=== PATIENT | male | born 1950 | race Caucasian/White ===

== ENCOUNTER 2016-07-03 06:37 | Inpatient (IN) ==
--- NOTE | 2016-07-02 13:33 | Anesthesia Evaluation PreOp ---
Date of Encounter: 07/03/16 Time of Encounter: 07:59 - Past History Planned Operation: CABG Cardiac History: Angina, HTN, Pacemaker/ICD (3 vessel disease, EF60% recently hospitalized for angina), Other (CAD with 3) Pulmonary History: Former smoker (quit smoking cigars 5 years ago), COPD PHARMACY AIDE History: Denies Any Significant HX Other Medical History: Thyroid (hypothyroid), Other (BPH) Anesthesia History: No Prior Anesthetic Complications, Past Anesthesia (T&A remotely) Alcohol Use: occasionally, recent Drug use: none Medications and Allergies Albuterol Sulfate [Proair Hfa] 2 puff IH Q4H PRN 07/01/16 [History] Aspirin [Lo-Dose Aspirin EC] 81 mg PO DAILY 07/01/16 [History] Budesonide/Formoterol 160/4.5 [Symbicort 160/4.5] 2 puff IH BIDR 07/01/16 [ History] Docusate [Colace] 100 mg PO DAILY 07/01/16 [History] Isosorbide MONOnitrate [Isosorbide Mononitrate] 15 mg PO DAILY 07/01/16 [History ] Levothyroxine [Synthroid] 175 mcg PO 0630 07/01/16 [History] Metoprolol XL (24 HR) Succ [Toprol Xl] 25 mg PO DAILY 07/01/16 [History] Omeprazole 20 mg PO DAILY 07/01/16 [History] Ranitidine HCl [Zantac 75] 75 mg PO DAILY 07/01/16 [History] Tamsulosin [Flomax] 0.4 mg PO DAILY 07/01/16 [History] Tiotropium [Spiriva] 18 mcg IH 0700 07/01/16 [History] Allergies No Known Allergies Allergy (Verified 07/03/16 07:28) - Meds/Allergy Pre-op Review Medications Reviewed: Yes Allergies Reviewed: Yes Beta Blockers on Current Med List: Yes Anesthesia Results - Labs Laboratory Tests 06/26/16 06/26/16 17:09 17:09 Hgb 17.1 H Hct 50.7 H Plt Count 305 Sodium 139 Potassium 4.0 BUN 14 Creatinine 1.43 H - Imaging Additional studies: Cath shows 3 vessel disease with EF 60% Anesthesia Exam Selected Entries 07/03/16 06:57 Temperature 98.2 F Pulse Rate 79 Respiratory Rate 18 Blood Pressure 154/93 O2 Sat by Pulse Oximetry 95 Height: 70in Weight: 126kg NPO (# of Hours): 8 Pain Scale: 2 Pain Scale Used: Numeric (1 - 10) - HEENT Pupil (Motor): EOMI Mallampati: III Teeth: Missing, Poor dentition Oral Opening: Greater than 3 - PHARMACY AIDE LOC: Oriented PHARMACY AIDE Motor: Normal RUE, Normal LUE, Normal RLE, Normal LLE, Normal Face PHARMACY AIDE Sensory: Normal: RUE, LUE, RLE, LLE, Face - Cardiac Rhythm: Regular Murmur: None - Pulmonary Breath Sounds: bilateral Clear Respiratory Effort: Symmetrical Anesthesia Assess/Plan ASA Score: 3 Modified Duane Scale for Level of Consciousness: Cooperative, oriented, and tranquil Anesthetic Plan: General Monitoring Plan: Standard Monitors, A-Line, PAC, CARL Recovery Plan: ICU (Discussed risks of GA, lines, CARL and potential need for blood. Questions answered and agrees to proceed)
[2016-07-03] MEDS ORDERED: Albuterol 2.5 MG/3 ML NEBULIZER IH ONE (06:49)
[2016-07-03] MEDS ORDERED: ceFAZolin 1,000 MG in D5% in Water (Mini-Bag+) 100 ML IVPB ONE (06:50)
[2016-07-03] MEDS: Chlorhexidine Rinse 15 ML MOUTHWASH MM SCH ×3 (07:15→23:27)
--- NOTE | 2016-07-03 07:28 | History & Physical Report ---
Date of Encounter: 07/03/16 Time of Encounter: 07:27 24 Hour HP Update - Instructions Instructions: If the History and Physical is less than 30 days old and was completed prior to A.M. admission and or procedure and has NOT been updated on calendar day of procedure please complete this update prior to performing procedure. - Update Patient reports changes in Medical Condition: No Changes in examination, assessment, or condition: No Changes in Medication: No Preop tests/diagnostics Reviewed: Yes Pre-Op MRSA Screen: Negative Surgery Remains Indicated: Yes Consent for Planned Operative Procedure(s) Verified: Yes - Pre-Operative Checklist Preoperative Checklist Indicated: Yes Prophylactic Antibiotic Ordered: Yes Home Medications Include Beta Julian: Yes Beta Julian Taken Today (Day of Surgery): Yes Beta Julian Taken Yesterday (Day Prior to Surgery): Yes Is VTE Prophylaxis Indicated?: Yes
[2016-07-03] MEDS ORDERED: *HR* Phenylephrine 10 MG/ML VIAL ONE (07:34)
[2016-07-03] MEDS ORDERED: Famotidine 20 MG/2 ML VIAL ONE (07:34)
[2016-07-03] MEDS ORDERED: *HR* Norepinephrine 4 MG/4 ML VIAL IVC ONE (07:34)
[2016-07-03] MEDS ORDERED: *HR* Rocuronium Bromide 50 MG/5 ML VIAL ONE ×2 (07:34→11:13)
[2016-07-03] MEDS ORDERED: *HR* Etomidate 20 MG/10 ML AMPUL IVP ONE (07:34)
[2016-07-03] MEDS ORDERED: Protamine Sulfate 250 MG/25 ML VIAL IVP ONE (07:35)
[2016-07-03] MEDS ORDERED: Tranexamic Acid 1,000 MG/10 ML VIAL ONE ×2 (07:35→10:02)
[2016-07-03] MEDS ORDERED: *HR* Midazolam HCl 5 MG/5 ML VIAL IVP ONE (07:45)
[2016-07-03] MEDS ORDERED: *HR* FentaNYL (PF) 1,000 MCG/20 ML VIAL ONE (07:46)
[2016-07-03] MEDS ORDERED: Nitroglycerin 25 MG/250 ML INFUS..BTL IVC ONE ×2 (07:47→11:24)
[2016-07-03] MEDS ORDERED: NiCARdipine 2.5 MG/10 ML Syringe IVPB ONE (07:48)
[2016-07-03] MEDS ORDERED: Verapamil 5 MG/2 ML VIAL ONE (08:09)
[2016-07-03] MEDS ORDERED: *HR* Phenylephrine 10 MG/ML VIAL IVC ONE (08:29)
[2016-07-03] MEDS ORDERED: Albumin Human 25% 25 GM/100 ML IV.SOLN IV ONE (08:29)
[2016-07-03] MEDS ORDERED: *HR* Heparin 10,000 UNIT/10 ML VIAL IV ONE (08:29)
[2016-07-03] MEDS ORDERED: *HR* Magnesium Sulfate 2 GM/50 ML PIGGYBACK IVPB ONE (08:29)
[2016-07-03] MEDS ORDERED: Lidocaine 2% Syringe 100 MG/5 ML IV ONE (08:29)
[2016-07-03] MEDS ORDERED: Mannitol 25% vial 12.5 GM/50 ML VIAL IVP ONE (08:29)
[2016-07-03] MEDS ORDERED: *HR* Atropine Sulfate 0.4 MG/ML VIAL ONE (09:03)
--- NOTE | 2016-07-03 09:17 | Anesthesia Procedures ---
Date of Encounter: 07/03/16 Time of Encounter: 08:20 Procedures: Anesthesia - Arterial Line Consent obtained: written consent Time out performed: Yes Sedation: Versed (mg): 2 Sedation: Fentanyl (mcg): 100 Supplemental Oxygen via Nasal Cannula (L/min): 2 Local Anesthetic: Lidocaine 1% Amount of Anesthetic used (mls): 1 Size (Gauge): 20 Length (inches): 5 Technique Used: sterile prep, guide wire technique, direct puncture technique Post-Procedure: line taped into place, dry sterile dressing placed Patient tolerated procedure: well, no complications Complications: none Site: Radial L - Central Line Placement Right IJ Consent obtained: written consent Time out performed: Yes Patient placed on monitor/pulse ox: Yes MD prep: mask, gown, gloves Central line prep: Chlorhexidine scrub, sterile drapes applied Ultrasound used for placement: Yes Technique: Seldinger Lumen Inserted: Introducer Post procedure: sutured in place, good blood return, all ports aspirated, flushed, capped, sterile dressing applied Patient tolerated procedure: well, no complications Complications: none Comments: attempt x 1. Introducer placed easily. Tiger placed wedge at approx 60 cm. no arrythmias with placement.
[2016-07-03] MEDS ORDERED: Albumin Human 5% 50.0 GM/1,000 ML VIAL ONE (11:25)
[2016-07-03] MEDS ORDERED: Protamine Sulfate 50 MG/5 ML VIAL IVP ONE (11:32)
[2016-07-03] MEDS ORDERED: *HR* Promethazine 25 MG/ML VIAL IVP PRN (12:18)
[2016-07-03] MEDS ORDERED: *HR* Dextrose 50 % in Water (Syg) 50 ML SYRINGE IVP PRN (12:18)
[2016-07-03] MEDS ORDERED: Insulin Regular, Human 100 UNIT/ML IV PRN (12:18)
[2016-07-03] MEDS ORDERED: Potassium Chloride 40 MEQ/200 ML BAG IVPB PRN (12:18)
[2016-07-03] MEDS ORDERED: Ondansetron 4 MG/2 ML VIAL IVP PRN (12:18)
[2016-07-03] MEDS ORDERED: Naloxone 0.4 MG/ML INJ IVP PRN (12:18)
[2016-07-03 12:36] LABS: ABG Base Excess 1.9 mEq/L (-2.0 to 3.0); ABG HCO3 28.2 mEQ/L (21-27); ABG Oxygen Saturation 96 % (95-98); ABG PCO2 50 mmHg (35-45); ABG PO2 87 mmHg (85-104); ABG TCO2 29.7 mEq/L (20-26); Basophils % 0.3 %; Mean Platelet Volume 9.2 fL (9.4-12.4)
[2016-07-03 12:38] LABS: Blood Gas FiO2 50 %
[2016-07-03 12:39] LABS: ABG PH 7.36 pH Units (7.32-7.45); Basophils # 0.1 K/mcL (0.0-0.2); Eosinophils # 0.3 K/mcL (0.0-0.6); Eosinophils % 1.2 %; Hematocrit 41.3 % (37.5-50.1); Hemoglobin 14.1 g/dL (12.9-16.9); Lymphocytes # 3.5 K/mcL (0.6-4.6); Lymphocytes % 13.5 %; Mean Corpuscular HGB Conc 34.1 g/dL (31.6-35.5); Mean Corpuscular Hemoglobin 30.5 pg (28.0-33.3); Mean Corpuscular Volume 89.4 fL (83.0-100.0); Monocytes # 1.5 K/mcL (0.0-1.3); Monocytes % 5.6 %; Platelet Count 190 K/mcL (140-400); Red Blood Count 4.62 M/mcL (4.19-5.50); Red Cell Distribution Width 12.3 % (11.5-14.5); Segmented Neutrophils % 78.4 %
--- NOTE | 2016-07-03 12:40 | Operative Note ---
Date of procedure: 07/03/16 Procedure in Detail: Preoperative diagnosis. Coronary artery disease. Postoperative diagnosis. Same. Procedures. Coronary artery bypass grafting 3 with the [place] to the LAD and saphenous vein grafts to the obtuse marginal branch of the circumflex and right coronary artery with saphenous vein. Surgeon. Dr. Frantz Escalante. Asst. Raj Correia. Anesthesia. Dr. Lucian Grajeda. Patient is a 65-year-old gentleman with a diagnosis of COPD who presented with angina. Cardiac catheterization revealed left main disease with triple-vessel disease. He was brought to the operating room where he underwent a general anesthetic. He was prepped and draped in standard fashion. The right greater saphenous vein was harvested from the right ankle up to the right lower thigh. This was done through 2 small incisions using the scope. These incisions were subsequently closed using a deep layer of 2-0 Vicryl and a 3-0 Vicryl subcuticular stitch. Standard median sternotomy was performed. Pericardium was opened in the midline and suspended with 2-0 silk stay sutures. Double purse string of 20 S[place] was placed in the aorta for the aortic cannulation site. A pursestring of 20 Surgilon was placed in the right atrial appendage for the venous uptake. The patient was heparinized. The aorta was cannulated without difficulty. 2 stage venous uptake cannula was inserted through the right atrial appendage. The patient was placed on cardiopulmonary bypass and cooled to 35. A pursestring of 4-0 silk was placed in the aorta and the cardioplegia needle was inserted through here. This was also used as an active and passive aortic vent. The aorta was crossclamped and a liter of antegrade cardioplegia was given. Topical cooling with iced saline slush was also done. Attention was first turned to the right coronary artery. The posterior descending branches were too small for grafting. The distal right coronary artery was dissected free with the [place] blade and opened with a [place] blade and the Aguilar scissors. This had a lumen of 1-1/2 mm and was relatively free of disease. A standard end to side anastomosis was constructed using the saphenous vein and a 7-0 Prolene. When this was completed , the patient received an additional dose of antegrade cardioplegia. Attention was next turned to the obtuse marginal branch of the circumflex. This was found to be intramyocardial. It was dissected free with the [place] blade and opened with a [place] blade and the Aguilar scissors. It had a lumen of 1-1/2 mm and was relatively free of disease. A standard end-to-side anastomosis was constructed using the saphenous vein and a 7-0 Prolene. At this point, the patient received the last dose of antegrade cardioplegia. Mammary pedicle was harvested. Tonsil clamp was placed distally and was divided with the Metzenbaum scissors. Distal end was tied off with 2-0 silk suture. Proximal limb was trimmed and brought into the wound. The LAD was dissected free with the [place] blade was found to have diffuse disease out to its tip. It was opened with a [place] blade and the Aguilar scissors. It had a lumen of 1 and 1/2 mm with moderate diffuse disease. A standard end side anastomosis was constructed using the mammary artery and a 7- 0 Prolene. When this was completed, the bulldog clamp was removed and the hemostasis was good. The pedicle was tacked to the surface of the heart using 2 interrupted 5-0 silk sutures. Cross-clamp was removed and rewarming was begun. Total cross-clamp time was 45 minutes. A side-biting clamp was placed on the aorta and the cardioplegia needle was removed. 2 holes were made in the aorta using the [place] blade and the 4.5 mm aortic punch. 2 proximal anastomosis were constructed using the saphenous veins and 5-0 Prolene's. The circumflex anastomosis was superior and the right anastomosis was inferior. When this was completed, the side-biting clamp was removed. Grass were de-aired using #25- gauge needle. Distal anastomoses were inspected and found to be hemostatic. Proximal anastomoses were marked with the marker from [employer] sponge. A pair of ventricular pacing wires was left. A 32 right angle chest tube in the left pleural space. A 32 pericardial chest tube. A 42 mediastinal chest tube. The patient was weaned from bypass requiring no pressors for support. He was decannulated and protamine was given. Hemostasis was good and the hemodynamics were good. Pericardium was left open. Sternum was closed with #7 sternal wires in simple and [id number] fashion. Fascia was run with #1 Vicryl. Subcutaneous tissues with a 2-0 Vicryl. Skin was closed with a 3-0 Vicryl subcuticular stitch. The patient tolerated procedure well and was returned to intensive care unit in satisfactory and stable condition. Total bypass time was 82 minutes. Total cross-clamp time was 45 minutes. Human cooled to 35.
[2016-07-03 12:42] LABS: INR 1.5
[2016-07-03 12:43] LABS: Neutrophils # 20.5 K/mcL (1.6-8.9)
[2016-07-03 12:44] LABS: Activated Partial Thrombo Time 30.2 Seconds (26.0-36.0)
[2016-07-03 12:48] LABS: BUN/Creatinine Ratio 14 (6-26); Blood Urea Nitrogen 14 mg/dL (8-26); Calcium 7.4 mg/dL (8.6-10.8); Carbon Dioxide 26 mEq/L (19-29); Chloride 111 mEq/L (98-109); Glucose 91 mg/dL (70-99); Magnesium 2.2 mg/dL (1.6-2.6); Osmolality,Calculated 298 (280-300); Potassium 3.6 mEq/L (3.5-4.5); eGFR For African Americans > 60 (> 60); eGFR For Non-African Americans > 60 (> 60)
[2016-07-03 12:50] LABS: Sodium 144 mEq/L (136-145)
[2016-07-03 13:26] LABS: Platelet Estimate Normal (Normal)
[2016-07-03] MEDS: 0.9 % Sodium Chloride 1,000 ML IVC SCH (13:28)
[2016-07-03] MEDS: *HR* Morphine 2 MG/ML SYRINGE IVP PRN ×2 (14:18→18:52)
[2016-07-03] MEDS: Norepinephrine 4 MG in D5% in Water 250 ML IVC SCH (14:30)
[2016-07-03 14:50] LABS: ABG Base Excess -1.9 mEq/L (-2.0 to 3.0); ABG Glucose 103 mg/dL (60-95); ABG HCO3 24.7 mEQ/L (21-27); ABG Hematocrit 47 % (35-51); ABG Ionized Calcium 1.05 mmol/L (1.15-1.35); ABG Oxygen Saturation 98 % (95-98); ABG PCO2 48 mmHg (35-45); ABG PH 7.32 pH Units (7.32-7.45); ABG PO2 122 mmHg (85-104); ABG TCO2 26.2 mEq/L (20-26)
[2016-07-03 14:53] LABS: ABG Base Excess -4.9 mEq/L (-2.0 to 3.0); ABG Glucose 116 mg/dL (60-95); ABG HCO3 19.5 mEQ/L (21-27); ABG Hematocrit 33 % (35-51); ABG Oxygen Saturation 99 % (95-98); ABG PCO2 33 mmHg (35-45); ABG PH 7.38 pH Units (7.32-7.45); ABG PO2 118 mmHg (85-104); ABG TCO2 20.5 mEq/L (20-26)
[2016-07-03 14:54] LABS: ABG Ionized Calcium 0.73 mmol/L (1.15-1.35)
[2016-07-03 14:56] LABS: ABG Base Excess 3.1 mEq/L (-2.0 to 3.0); ABG HCO3 27.9 mEQ/L (21-27); ABG Oxygen Saturation 100 % (95-98); ABG PCO2 43 mmHg (35-45); ABG PH 7.42 pH Units (7.32-7.45); ABG PO2 485 mmHg (85-104); ABG TCO2 29.2 mEq/L (20-26)
[2016-07-03 14:57] LABS: ABG Glucose 186 mg/dL (60-95); ABG Hematocrit 31 % (35-51); ABG Ionized Calcium 0.91 mmol/L (1.15-1.35)
[2016-07-03 15:00] LABS: ABG Base Excess 3.4 mEq/L (-2.0 to 3.0); ABG Glucose 153 mg/dL (60-95); ABG HCO3 28.5 mEQ/L (21-27); ABG Hematocrit 29 % (35-51); ABG Ionized Calcium 0.99 mmol/L (1.15-1.35); ABG Oxygen Saturation 100 % (95-98); ABG PCO2 45 mmHg (35-45); ABG PO2 382 mmHg (85-104); ABG TCO2 29.9 mEq/L (20-26)
[2016-07-03 15:02] LABS: ABG HCO3 24.7 mEQ/L (21-27); ABG PCO2 39 mmHg (35-45); ABG PH 7.41 pH Units (7.32-7.45); ABG PO2 68 mmHg (85-104)
[2016-07-03 15:03] LABS: ABG Base Excess 0.1 mEq/L (-2.0 to 3.0); ABG Glucose 120 mg/dL (60-95); ABG Hematocrit 27 % (35-51); ABG Ionized Calcium 1.28 mmol/L (1.15-1.35); ABG Oxygen Saturation 93 % (95-98); ABG TCO2 25.9 mEq/L (20-26)
[2016-07-03 15:09] LABS: ABG PH 7.41 pH Units (7.32-7.45)
[2016-07-03] MEDS: ceFAZolin 3,000 MG in D5% in Water 100 ML IVPB SCH ×2 (16:28→23:27)
[2016-07-03] MEDS: Insulin Human Regular 100 UNIT in 0.9 % Sodium Chloride 100 ML IVC SCH (19:00)
[2016-07-03] MEDS: Nitroglycerin 25 MG/250 ML INFUS..BTL IVC SCH ×2 (19:45→21:06)
[2016-07-03] MEDS: Ringers Solution, Lactated 1,000 ML IVC SCH (19:45)
[2016-07-03 19:46] LABS: ABG Base Excess -2.5 mEq/L (-2.0 to 3.0); ABG HCO3 22.5 mEQ/L (21-27); ABG Oxygen Saturation 96 % (95-98); ABG PCO2 39 mmHg (35-45); ABG PH 7.37 pH Units (7.32-7.45); ABG PO2 84 mmHg (85-104); ABG TCO2 23.7 mEq/L (20-26)
[2016-07-03 19:47] LABS: Blood Gas FiO2 35 %
[2016-07-03 21:40] LABS: Basophils # 0.1 K/mcL (0.0-0.2); Basophils % 0.3 %; Eosinophils % 0.1 %; Hematocrit 38.9 % (37.5-50.1); Hemoglobin 13.4 g/dL (12.9-16.9); Immature Granulocytes % 0.9 % (0-4); Lymphocytes # 1.5 K/mcL (0.6-4.6); Lymphocytes % 6.4 %; Mean Corpuscular HGB Conc 34.4 g/dL (31.6-35.5); Mean Corpuscular Hemoglobin 30.7 pg (28.0-33.3); Mean Corpuscular Volume 89.2 fL (83.0-100.0); Mean Platelet Volume 9.4 fL (9.4-12.4); Monocytes # 1.8 K/mcL (0.0-1.3); Monocytes % 7.8 %; Neutrophils # 19.7 K/mcL (1.6-8.9); Platelet Count 214 K/mcL (140-400); Red Blood Count 4.36 M/mcL (4.19-5.50); Red Cell Distribution Width 12.5 % (11.5-14.5); Segmented Neutrophils % 84.5 %
[2016-07-03 21:54] LABS: ABG HCO3 24.8 mEQ/L (21-27); ABG Oxygen Saturation 93 % (95-98); ABG PCO2 40 mmHg (35-45); ABG PO2 68 mmHg (85-104); Blood Gas FiO2 30 %
[2016-07-03 23:21] LABS: ABG Base Excess 0.7 mEq/L (-2.0 to 3.0); ABG HCO3 25.4 mEQ/L (21-27); ABG Oxygen Saturation 94 % (95-98); ABG PCO2 40 mmHg (35-45); ABG PH 7.41 pH Units (7.32-7.45); ABG PO2 69 mmHg (85-104); ABG TCO2 26.6 mEq/L (20-26)
[2016-07-03 23:23] LABS: Blood Gas FiO2 36 %
[2016-07-04] MEDS: Nitroglycerin 25 MG/250 ML INFUS..BTL IVC SCH ×3 (01:17→20:34)
[2016-07-04] MEDS: Norepinephrine 4 MG in D5% in Water 250 ML IVC SCH ×2 (01:18→20:34)
[2016-07-04] MEDS: *HR* Morphine 2 MG/ML SYRINGE IVP PRN ×3 (02:17→12:54)
[2016-07-04 03:46] LABS: Basophils % 0.2 %; Hematocrit 38.8 % (37.5-50.1); Immature Granulocytes % 0.6 % (0-4); Lymphocytes % 5.9 %; Mean Corpuscular HGB Conc 33.5 g/dL (31.6-35.5); Mean Corpuscular Hemoglobin 30.2 pg (28.0-33.3); Mean Platelet Volume 9.3 fL (9.4-12.4); Monocytes # 1.9 K/mcL (0.0-1.3); Monocytes % 10.6 %; Neutrophils # 14.6 K/mcL (1.6-8.9); Platelet Count 190 K/mcL (140-400); Red Blood Count 4.31 M/mcL (4.19-5.50); Red Cell Distribution Width 12.7 % (11.5-14.5); Segmented Neutrophils % 82.7 %
[2016-07-04 03:52] LABS: INR 1.3
[2016-07-04 03:55] LABS: Activated Partial Thrombo Time 28.2 Seconds (26.0-36.0)
[2016-07-04 03:58] LABS: BUN/Creatinine Ratio 13 (6-26); Blood Urea Nitrogen 18 mg/dL (8-26); Carbon Dioxide 22 mEq/L (19-29); Chloride 108 mEq/L (98-109); Glucose 153 mg/dL (70-99); Magnesium 2.1 mg/dL (1.6-2.6); Osmolality,Calculated 291 (280-300); Potassium 4.6 mEq/L (3.5-4.5); Sodium 138 mEq/L (136-145); eGFR For African Americans > 60 (> 60); eGFR For Non-African Americans 51 (> 60)
[2016-07-04] MEDS: 0.9 % Sodium Chloride 1,000 ML IVC SCH ×2 (05:33→18:53)
[2016-07-04] MEDS: Ringers Solution, Lactated 1,000 ML IVC SCH (05:33)
--- NOTE | 2016-07-04 06:36 | Cardiothoracic Progress Note ---
Date of Encounter: 07/04/16 Time of Encounter: 06:33 - Assessment and plan (1) Coronary artery disease Current Visit: No Status: Acute The assessment and plan as outlined above was discussed with the patient and/or family members who expressed understanding and agreement. All questions were answered. We will discontinue the [place] catheter and arterial line. We will leave the [place] in place until the chest tubes are removed. The patient is on a small dose of pressor and we will wean this off slowly. We will leave the chest tubes until tomorrow. The patient can probably be transferred to the floor later today or tomorrow. Qualifiers: Coronary Disease-Associated Artery/Lesion type: [place] artery [place] vs. transplanted heart: [place] heart Associated angina: without angina Qualified Code(s): I25.10 - Atherosclerotic heart disease of [place] coronary artery without angina pectoris - Subjective Interval history: The patient has no complaints. He requests that we leave his [place] catheter until his chest tubes are removed. Vital Signs, Last 4 Hours Pulse Resp BP Pulse Ox 07/04/16 06:00 81 16 112/70 95 07/04/16 05:00 79 22 125/78 97 07/04/16 03:59 80 16 128/80 93 07/04/16 03:54 80 07/04/16 03:52 18 95 07/04/16 03:00 80 20 126/80 93 Oxgyen Flow Rate Oxygen Flow Rate (LPM) 4 Clinical Data, last 8 Hours Output, Chest Tube Drainage 10 Amount [Mediastinal #1] Output, Chest Tube Drainage 0 Amount [Mediastinal #1] Output, Chest Tube Drainage 0 Amount [Mediastinal #1] Output, Chest Tube Drainage 0 Amount [Mediastinal #1] Output, Chest Tube Drainage 0 Amount [Mediastinal #1] Output, Chest Tube Drainage 10 Amount [Mediastinal #1] Output, Chest Tube Drainage 0 Amount [Mediastinal #1] Output, Chest Tube Drainage 0 Amount [Mediastinal #1] Output, Chest Tube Drainage 10 Amount [Mediastinal #2] Output, Chest Tube Drainage 0 Amount [Mediastinal #2] Output, Chest Tube Drainage 0 Amount [Mediastinal #2] Output, Chest Tube Drainage 40 Amount [Mediastinal #2] Output, Chest Tube Drainage 0 Amount [Mediastinal #2] Output, Chest Tube Drainage 0 Amount [Mediastinal #2] Output, Chest Tube Drainage 40 Amount [Mediastinal #2] Output, Chest Tube Drainage 0 Amount [Mediastinal #2] Output, Chest Tube Drainage 20 Amount [Mediastinal #3] Output, Chest Tube Drainage 0 Amount [Mediastinal #3] Output, Chest Tube Drainage 0 Amount [Mediastinal #3] Output, Chest Tube Drainage 10 Amount [Mediastinal #3] Output, Chest Tube Drainage 0 Amount [Mediastinal #3] Output, Chest Tube Drainage 10 Amount [Mediastinal #3] Output, Chest Tube Drainage 10 Amount [Mediastinal #3] Output, Chest Tube Drainage 0 Amount [Mediastinal #3] Weight 07/02/16 07/03/16 07/04/16 23:59 23:59 23:59 Weight 125.645 kg Lungs are clear to percussion and auscultation. Heart is in a normal sinus rhythm. The incision is healing well without signs of infection and the sternum is stable. Chest tubes have minimal drainage and no air leak.chest x-ray reveals no pneumothorax. - Labs 07/04/16 03:36 07/04/16 03:36 Lab Results, Last 24 hours 07/03/16 07/03/16 07/03/16 12:23 12:23 12:23 WBC 26.2 H D Hgb 14.1 D Hct 41.3 Plt Count 190 INR 1.5 APTT 30.2 Sodium 144 Potassium 3.6 Chloride 111 H Carbon Dioxide 26 BUN 14 Creatinine 0.99 Glucose 91 Calcium 7.4 L Magnesium 2.2 07/03/16 07/04/16 07/04/16 16:57 03:36 03:36 WBC 23.3 H 17.7 H Hgb 13.4 13.0 Hct 38.9 38.8 Plt Count 214 190 INR 1.3 APTT 28.2 Sodium Potassium Chloride Carbon Dioxide BUN Creatinine Glucose Calcium Magnesium 07/04/16 03:36 WBC Hgb Hct Plt Count INR APTT Sodium 138 Potassium 4.6 H D Chloride 108 Carbon Dioxide 22 BUN 18 Creatinine 1.40 H Glucose 153 H Calcium 8.0 L Magnesium 2.1 - VTE Documentation of Mechanical Device: Graduated compression elastic hosiery Consult Discharge Plan - Plan Referrals: Adriana Gomez, FIGURE SKATER [Primary Care Provider] -
[2016-07-04] MEDS: Chlorhexidine Rinse 15 ML MOUTHWASH MM SCH ×2 (09:34→20:38)
[2016-07-04] MEDS: *HR* OxyCODONE/APAP 5/325 TABLET PO PRN ×2 (11:47→16:43)
--- NOTE | 2016-07-04 12:56 | Electrocardiograph Report ---
[place] [id number] Test Date: 2016-07-03 Pat Name: Ramírez Camargo Department: 109 Room: [facility] Gender: M Registered Land Surveyor: YAEL : 1950 Requested By: Frantz Escalante Order Number: [id number] Reading MD: Kuldeep Fajardo MD Measurements Intervals [place] Rate: 84 P: 36 AL: 192 QRS: 80 QRSD: 108 T: 44 QT: 372 QTc: 413 Interpretive Statements SINUS RHYTHM BASELINE ARTIFACT Electronically Signed On 07-04-2016 12:54:33 EDT by Kuldeep Fajardo MD
[2016-07-04] MEDS ORDERED: D5% in Water 1,000 ML IVC PRN (13:04)
[2016-07-04] MEDS ORDERED: Dextrose Gel 15 GM PO PRN ×2 (13:04)
[2016-07-04] MEDS ORDERED: *HR* Dextrose 50 % in Water (Syg) 50 ML SYRINGE IVP PRN (13:04)
--- NOTE | 2016-07-04 13:14 | Anesthesia Evaluation Post Op ---
Date of Encounter: 07/04/16 Time of Encounter: 13:12 - Vital Signs Vital Signs: Selected Entries 07/04/16 12:57 Pulse Rate 94 Respiratory Rate 20 Blood Pressure 125/83 O2 Sat by Pulse Oximetry 96 Oxygen Delivery Method Nasal Cannula - Lungs Lungs: Clear Ascult./Percussion - Airway Airway: Non-obstructed - Cardiovascular Regular Rate - Mental Status Mental Status: Alert & Oriented, Answers Appropriately - Pain Pain Scale: 3 Pain Scale used: Numeric (1 - 10) (was able to get swelf out of bed and is sitting in chair) - Nausea Vomiting Nausea Vomiting: Not Present - Hydration Hydration: Tolerates oral liquids (Patient will probably be moved out to floor tomorrow)
[2016-07-04] MEDS: Insulin LISPRO 300 UNITS/3 ML VIAL SQ SCH (16:40)
[2016-07-04] MEDS: Insulin Human Regular 100 UNIT in 0.9 % Sodium Chloride 100 ML IVC SCH (20:32)
[2016-07-04] MEDS ORDERED: Insulin LISPRO 300 UNITS/3 ML VIAL SQ SCH (21:00)
[2016-07-05] MEDS: Nitroglycerin 25 MG/250 ML INFUS..BTL IVC SCH ×3 (00:39→09:43)
[2016-07-05] MEDS: *HR* OxyCODONE/APAP 5/325 TABLET PO PRN ×4 (02:58→20:42)
[2016-07-05 04:51] LABS: Basophils % 0.2 %; Eosinophils # 0.1 K/mcL (0.0-0.6); Eosinophils % 0.4 %; Hematocrit 35.8 % (37.5-50.1); Hemoglobin 11.7 g/dL (12.9-16.9); Immature Granulocytes % 0.8 % (0-4); Lymphocytes # 1.2 K/mcL (0.6-4.6); Lymphocytes % 6.7 %; Mean Corpuscular HGB Conc 32.7 g/dL (31.6-35.5); Mean Corpuscular Volume 91.8 fL (83.0-100.0); Mean Platelet Volume 9.6 fL (9.4-12.4); Monocytes # 1.8 K/mcL (0.0-1.3); Neutrophils # 14.7 K/mcL (1.6-8.9); Platelet Count 160 K/mcL (140-400); Red Cell Distribution Width 13.1 % (11.5-14.5); Segmented Neutrophils % 81.9 %
[2016-07-05] MEDS: 0.9 % Sodium Chloride 1,000 ML IVC SCH ×2 (05:12→08:58)
[2016-07-05] MEDS: Ringers Solution, Lactated 1,000 ML IVC SCH (05:12)
[2016-07-05] MEDS: Insulin LISPRO 300 UNITS/3 ML VIAL SQ SCH ×4 (07:52→20:47)
[2016-07-05] MEDS: Chlorhexidine Rinse 15 ML MOUTHWASH MM SCH ×2 (09:45→20:42)
--- NOTE | 2016-07-05 09:56 | Cardiothoracic Progress Note ---
Date of Encounter: 07/05/16 Time of Encounter: 09:54 - Assessment and plan (1) Coronary artery disease Current Visit: No Status: Acute The patient is recovering well from his CABG 3. The chest tubes were removed. The patient will be transferred to the stepdown unit when a bed is available. The assessment and plan as outlined above was discussed with the patient and/or family members who expressed understanding and agreement. All questions were answered. Qualifiers: Coronary Disease-Associated Artery/Lesion type: [place] artery [place] vs. transplanted heart: [place] heart Associated angina: without angina Qualified Code(s): I25.10 - Atherosclerotic heart disease of [place] coronary artery without angina pectoris - Subjective Procedure(s) Performed: POD#2 S/P CABG 3 Interval history: The patient remained tender stable overnight. He has no complaints. Vital Signs, Last 4 Hours Pulse Resp BP Pulse Ox 07/05/16 09:00 98 18 137/90 96 07/05/16 08:13 16 98 07/05/16 08:00 99 21 122/80 97 07/05/16 07:00 99 19 135/90 97 07/05/16 06:00 99 14 131/88 97 Oxgyen Flow Rate Oxygen Flow Rate (LPM) 4 Clinical Data, last 8 Hours Output, Chest Tube Drainage 0 Amount [Mediastinal #1] Output, Chest Tube Drainage 20 Amount [Mediastinal #1] Output, Chest Tube Drainage 0 Amount [Mediastinal #2] Output, Chest Tube Drainage 0 Amount [Mediastinal #2] Output, Chest Tube Drainage 10 Amount [Mediastinal #3] Output, Chest Tube Drainage 30 Amount [Mediastinal #3] Weight 07/03/16 07/04/16 07/05/16 23:59 23:59 23:59 Weight 125.645 kg - Physical Examination General: Conversant, No Apparent Distress Neck: No JVD, Normal carotid pulses Cardiac: Reg Rate and Rhythm, Normal S1 and S2, No Murmur Incision: No signs of infection, Dry/intact dressing Sternum: Stable Chest tubes: Minimal drainage, Other (No air leak.) Pacing Wires: In place Lungs: Normal Breath Sounds, No Wheeze, Rales, Rhonchi Neuro: Alert and responsive, No focal deficits noted Vascular: Normal capillary refill Extremities: No Clubbing, No Cyanosis, No Edema - Labs 07/05/16 04:40 07/04/16 03:36 Lab Results, Last 24 hours 05/26/17 04:40 WBC 17.9 H Hgb 11.7 L Hct 35.8 L Plt Count 160 - VTE Documentation of Mechanical Device: Graduated compression elastic hosiery Consult Discharge Plan - Plan Referrals: Adriana Gomez, MARKETING OPERATIONS ASSOCIATE [Primary Care Provider] -
[2016-07-05] MEDS ORDERED: *HR* Morphine 2 MG/ML SYRINGE IVP PRN (11:24)
[2016-07-05] MEDS ORDERED: D5% in Water 1,000 ML IVC PRN (11:24)
[2016-07-05] MEDS ORDERED: Insulin Regular, Human 100 UNIT/ML IV PRN (11:24)
[2016-07-05] MEDS ORDERED: *HR* Promethazine 25 MG/ML VIAL IVP PRN (11:24)
[2016-07-05] MEDS ORDERED: *HR* Dextrose 50 % in Water (Syg) 50 ML SYRINGE IVP PRN (11:24)
[2016-07-05] MEDS ORDERED: Dextrose Gel 15 GM PO PRN ×2 (11:24)
[2016-07-05] MEDS ORDERED: Naloxone 0.4 MG/ML INJ IVP PRN (11:24)
[2016-07-05] MEDS ORDERED: Ondansetron 4 MG/2 ML VIAL ONE (11:30)
[2016-07-05] MEDS: Ondansetron 4 MG/2 ML VIAL IVP PRN (11:46)
[2016-07-05] MEDS: Furosemide 20 MG/2 ML VIAL IVP SCH ×2 (12:05→17:23)
[2016-07-05] MEDS: *HR* Heparin 5,000 UNIT/ML VIAL SQ SCH (17:23)
[2016-07-05] MEDS: Budesonide/Formoterol 160/4.5 MDI IH SCH (19:53)
[2016-07-06 04:00] LABS: Hematocrit 34.9 % (37.5-50.1); Hemoglobin 11.4 g/dL (12.9-16.9); Mean Corpuscular HGB Conc 32.7 g/dL (31.6-35.5); Mean Corpuscular Hemoglobin 29.9 pg (28.0-33.3); Mean Corpuscular Volume 91.6 fL (83.0-100.0); Mean Platelet Volume 10.1 fL (9.4-12.4); Platelet Count 201 K/mcL (140-400); Red Blood Count 3.81 M/mcL (4.19-5.50); Red Cell Distribution Width 13.1 % (11.5-14.5)
[2016-07-06 04:01] LABS: Basophils % 0.2 %; Eosinophils # 0.2 K/mcL (0.0-0.6); Eosinophils % 1.5 %; Immature Granulocytes % 1.2 % (0-4); Lymphocytes # 1.9 K/mcL (0.6-4.6); Lymphocytes % 12.1 %; Monocytes # 1.4 K/mcL (0.0-1.3); Neutrophils # 11.9 K/mcL (1.6-8.9)
[2016-07-06 04:29] LABS: BUN/Creatinine Ratio 19 (6-26); Blood Urea Nitrogen 22 mg/dL (8-26); Calcium 8.3 mg/dL (8.6-10.8); Carbon Dioxide 25 mEq/L (19-29); Chloride 105 mEq/L (98-109); Glucose 125 mg/dL (70-99); Osmolality,Calculated 287 (280-300); Potassium 3.9 mEq/L (3.5-4.5); Sodium 136 mEq/L (136-145); eGFR For African Americans > 60 (> 60); eGFR For Non-African Americans > 60 (> 60)
[2016-07-06] MEDS: *HR* Heparin 5,000 UNIT/ML VIAL SQ SCH ×2 (06:00→18:19)
[2016-07-06] MEDS: Insulin LISPRO 300 UNITS/3 ML VIAL SQ SCH ×4 (08:17→21:57)
[2016-07-06] MEDS: Tiotropium 18 MCG inhalation IH SCH (08:25)
[2016-07-06] MEDS: Budesonide/Formoterol 160/4.5 MDI IH SCH ×2 (08:29→20:37)
[2016-07-06] MEDS: Furosemide 20 MG/2 ML VIAL IVP SCH ×2 (08:49→16:35)
[2016-07-06] MEDS: Aspirin Enteric Coated 81 MG Tablet PO SCH (08:50)
[2016-07-06] MEDS: Chlorhexidine Rinse 15 ML MOUTHWASH MM SCH ×2 (08:50→21:56)
--- NOTE | 2016-07-06 10:05 | Cardiothoracic Progress Note ---
Date of Encounter: 07/06/16 Time of Encounter: 10:03 - Assessment and plan (1) Coronary artery disease Current Visit: No Status: Acute The patient is recovering well from his CABG 3. He will continue with progressive ambulation and independent activities. The assessment and plan as outlined above was discussed with the patient and/or family members who expressed understanding and agreement. All questions were answered. Qualifiers: Coronary Disease-Associated Artery/Lesion type: [place] artery [place] vs. transplanted heart: [place] heart Associated angina: without angina Qualified Code(s): I25.10 - Atherosclerotic heart disease of [place] coronary artery without angina pectoris - Subjective Procedure(s) Performed: POD#3 S/P CABG 3 Interval history: The patient remained hemodynamically stable overnight. He was able to walk in his hospital room yesterday without difficulty. He has no complaints. Vital Signs, Last 4 Hours Temp Pulse Resp BP Pulse Ox 07/06/16 08:30 102 07/06/16 08:28 16 95 07/06/16 07:39 97.9 F 82 22 120/84 96 Oxgyen Flow Rate Oxygen Flow Rate (LPM) 2 Weight 07/04/16 07/05/16 07/06/16 23:59 23:59 23:59 Weight 127.596 kg 127.958 kg - Physical Examination General: Conversant, No Apparent Distress Neck: No JVD, Normal carotid pulses Cardiac: Reg Rate and Rhythm, Normal S1 and S2, No Murmur Incision: No signs of infection, Dry/intact dressing Sternum: Stable Lungs: Normal Breath Sounds, No Wheeze, Rales, Rhonchi Neuro: Alert and responsive, No focal deficits noted Vascular: Normal capillary refill Extremities: No Clubbing, No Cyanosis, No Edema - Labs 07/06/16 03:50 07/06/16 03:50 Lab Results, Last 24 hours 07/06/16 07/06/16 03:50 03:50 WBC 15.6 H Hgb 11.4 L Hct 34.9 L Plt Count 201 Sodium 136 Potassium 3.9 Chloride 105 Carbon Dioxide 25 BUN 22 Creatinine 1.13 Glucose 125 H Calcium 8.3 L - VTE Documentation of Mechanical Device: Graduated compression elastic hosiery Consult Discharge Plan - Plan Referrals: Frantz Escalante MD [Partnered Physician] - 08/08/16 2:00 pm Adriana Gomez CNP [Primary Care Provider] - 07/11/16 8:30 am Leanne Cooney DO [Partnered Physician] - 07/11/16 2:25 pm
[2016-07-06] MEDS: Ondansetron 4 MG/2 ML VIAL IVP PRN (11:58)
[2016-07-06] MEDS: *HR* OxyCODONE/APAP 5/325 TABLET PO PRN ×2 (13:14→22:25)
[2016-07-07] MEDS: *HR* Heparin 5,000 UNIT/ML VIAL SQ SCH ×2 (04:56→17:37)
[2016-07-07] MEDS: Insulin LISPRO 300 UNITS/3 ML VIAL SQ SCH (08:01)
[2016-07-07] MEDS: Chlorhexidine Rinse 15 ML MOUTHWASH MM SCH ×2 (08:07→20:10)
[2016-07-07] MEDS: Furosemide 20 MG/2 ML VIAL IVP SCH ×2 (08:08→17:37)
[2016-07-07] MEDS: Aspirin Enteric Coated 81 MG Tablet PO SCH (08:08)
[2016-07-07] MEDS: Tiotropium 18 MCG inhalation IH SCH (08:10)
[2016-07-07] MEDS: Budesonide/Formoterol 160/4.5 MDI IH SCH ×2 (08:10→20:58)
--- NOTE | 2016-07-07 08:59 | Cardiothoracic Progress Note ---
Date of Encounter: 07/07/16 Time of Encounter: 08:58 - Assessment and plan (1) Coronary artery disease Current Visit: No Status: Acute The patient is recovering well from his CABG 3. He will continue with progressive ambulation and independent activities. The assessment and plan as outlined above was discussed with the patient and/or family members who expressed understanding and agreement. All questions were answered. Qualifiers: Coronary Disease-Associated Artery/Lesion type: [place] artery [place] vs. transplanted heart: [place] heart Associated angina: without angina Qualified Code(s): I25.10 - Atherosclerotic heart disease of [place] coronary artery without angina pectoris - Subjective Procedure(s) Performed: POD#4 S/P CABG 3 Interval history: The patient remained hemodynamically stable overnight. He was able to walk in his hospital room yesterday without difficulty. He has no complaints. Vital Signs, Last 4 Hours Temp Pulse Resp BP Pulse Ox 07/07/16 08:11 84 07/07/16 08:10 18 96 07/07/16 07:49 97.7 F 86 22 117/92 96 Oxgyen Flow Rate Oxygen Flow Rate (LPM) 4 Weight 07/05/16 07/06/16 07/07/16 23:59 23:59 23:59 Weight 127.596 kg 127.958 kg 127.573 kg - Physical Examination General: Conversant, No Apparent Distress Neck: No JVD, Normal carotid pulses Cardiac: Reg Rate and Rhythm, Normal S1 and S2, No Murmur Incision: No signs of infection, Dry/intact dressing Sternum: Stable Pacing Wires: In place Lungs: Normal Breath Sounds, No Wheeze, Rales, Rhonchi Neuro: Alert and responsive, No focal deficits noted Vascular: Normal capillary refill Musculoskeletal: No Chest Wall Tenderness Extremities: No Clubbing, No Cyanosis, No Edema - Labs 07/06/16 03:50 07/06/16 03:50 - VTE Documentation of Mechanical Device: Graduated compression elastic hosiery Consult Discharge Plan - Plan Referrals: Frantz Escalante MD [Partnered Physician] - 08/08/16 2:00 pm Adriana Gomez CNP [Primary Care Provider] - 07/11/16 8:30 am Leanne Cooney DO [Partnered Physician] - 07/11/16 2:25 pm
[2016-07-07] MEDS: *HR* OxyCODONE/APAP 5/325 TABLET PO PRN (11:14)
[2016-07-08] MEDS: Ondansetron 4 MG/2 ML VIAL IVP PRN (02:17)
[2016-07-08] MEDS: *HR* OxyCODONE/APAP 5/325 TABLET PO PRN (02:24)
[2016-07-08] MEDS: *HR* Heparin 5,000 UNIT/ML VIAL SQ SCH ×2 (05:09→18:10)
--- NOTE | 2016-07-08 07:41 | Cardiothoracic Progress Note ---
Date of Encounter: 07/08/16 Time of Encounter: 07:40 - Assessment and plan (1) Coronary artery disease Current Visit: No Status: Acute The patient is recovering well from his CABG 3. He will continue with progressive ambulation and independent activities. He is now considering rehabilitation as a bridge to home. I will have the social science professor speak with him tomorrow. The assessment and plan as outlined above was discussed with the patient and/or family members who expressed understanding and agreement. All questions were answered. Qualifiers: Coronary Disease-Associated Artery/Lesion type: [place] artery [place] vs. transplanted heart: [place] heart Associated angina: without angina Qualified Code(s): I25.10 - Atherosclerotic heart disease of [place] coronary artery without angina pectoris - Subjective Procedure(s) Performed: POD#5 S/P CABG 3 Interval history: The patient remained hemodynamically stable overnight. He was able to walk in in the hallways 3 times yesterday without difficulty. He has no complaints. Vital Signs, Last 4 Hours Temp Pulse Resp BP Pulse Ox 07/08/16 07:32 98.4 F 80 18 132/81 91 07/08/16 05:15 82 07/08/16 03:58 17 93 Oxgyen Flow Rate Oxygen Flow Rate (LPM) 3 Weight 07/06/16 07/07/16 07/08/16 23:59 23:59 23:59 Weight 127.958 kg 127.573 kg 127.459 kg - Physical Examination General: Conversant, No Apparent Distress Neck: No JVD, Normal carotid pulses Cardiac: Reg Rate and Rhythm, Normal S1 and S2, No Murmur Incision: No signs of infection, Dry/intact dressing Sternum: Stable Pacing Wires: In place Lungs: Normal Breath Sounds, No Wheeze, Rales, Rhonchi Neuro: Alert and responsive, No focal deficits noted Vascular: Normal capillary refill Musculoskeletal: No Chest Wall Tenderness Extremities: No Clubbing, No Cyanosis, No Edema - Labs 07/06/16 03:50 07/06/16 03:50 - VTE Documentation of Mechanical Device: Graduated compression elastic hosiery Consult Discharge Plan - Plan Referrals: Frantz Escalante MD [Partnered Physician] - 08/08/16 2:00 pm Adriana Gomez CNP [Primary Care Provider] - 07/11/16 8:30 am Leanne Cooney DO [Partnered Physician] - 07/11/16 2:25 pm
[2016-07-08] MEDS: Tiotropium 18 MCG inhalation IH SCH (07:57)
[2016-07-08] MEDS: Budesonide/Formoterol 160/4.5 MDI IH SCH ×2 (07:57→21:45)
[2016-07-08] MEDS: Chlorhexidine Rinse 15 ML MOUTHWASH MM SCH ×2 (08:35→20:15)
[2016-07-08] MEDS: Aspirin Enteric Coated 81 MG Tablet PO SCH (08:35)
[2016-07-09] MEDS: *HR* Heparin 5,000 UNIT/ML VIAL SQ SCH ×2 (05:40→18:09)
[2016-07-09] MEDS: Chlorhexidine Rinse 15 ML MOUTHWASH MM SCH ×2 (07:45→19:43)
[2016-07-09] MEDS: Aspirin Enteric Coated 81 MG Tablet PO SCH (07:46)
[2016-07-09] MEDS: *HR* OxyCODONE/APAP 5/325 TABLET PO PRN (07:48)
[2016-07-09] MEDS: Budesonide/Formoterol 160/4.5 MDI IH SCH ×2 (08:00→20:27)
[2016-07-09] MEDS: Tiotropium 18 MCG inhalation IH SCH (08:00)
--- NOTE | 2016-07-09 09:13 | Cardiothoracic Progress Note ---
Date of Encounter: 07/09/16 Time of Encounter: 09:11 - Assessment and plan (1) Coronary artery disease Current Visit: No Status: Acute The patient is recovering well from his CABG 3. He will continue with progressive ambulation and independent activities. He is now considering rehabilitation as a bridge to home. If the patient continues to do well today, he will be discharged to [facility] tomorrow. The assessment and plan as outlined above was discussed with the patient and/or family members who expressed understanding and agreement. All questions were answered. Qualifiers: Coronary Disease-Associated Artery/Lesion type: [place] artery [place] vs. transplanted heart: [place] heart Associated angina: without angina Qualified Code(s): I25.10 - Atherosclerotic heart disease of [place] coronary artery without angina pectoris - Subjective Procedure(s) Performed: POD#6 S/P CABG 3 Interval history: The patient was able to walk in in the hallways 3 times yesterday without difficulty. He has no complaints. Vital Signs, Last 4 Hours Temp Pulse Resp BP Pulse Ox 07/09/16 08:01 16 96 07/09/16 07:12 98.0 F 77 17 140/94 95 07/09/16 07:00 74 Oxgyen Flow Rate Oxygen Flow Rate (LPM) 0 Weight 07/07/16 07/08/16 07/09/16 23:59 23:59 23:59 Weight 127.573 kg 127.459 kg 127.1 kg - Physical Examination General: Conversant, No Apparent Distress Neck: No JVD, Normal carotid pulses Cardiac: Reg Rate and Rhythm, Normal S1 and S2, No Murmur Incision: No signs of infection, Dry/intact dressing Sternum: Stable Pacing Wires: In place Lungs: Normal Breath Sounds, No Wheeze, Rales, Rhonchi Neuro: Alert and responsive, No focal deficits noted Vascular: Normal capillary refill Musculoskeletal: No Chest Wall Tenderness Extremities: No Clubbing, No Cyanosis, No Edema - Labs 07/06/16 03:50 07/06/16 03:50 - VTE Documentation of Mechanical Device: Graduated compression elastic hosiery Consult Discharge Plan - Plan Referrals: Frantz Escalante MD [Partnered Physician] - 08/08/16 2:00 pm Adriana Gomez CNP [Primary Care Provider] - 07/11/16 8:30 am Leanne Cooney DO [Partnered Physician] - 07/11/16 2:25 pm
[2016-07-09] MEDS: Ondansetron 4 MG/2 ML VIAL IVP PRN (18:12)
[2016-07-10] MEDS: *HR* Heparin 5,000 UNIT/ML VIAL SQ SCH (06:21)
[2016-07-10] MEDS: Tiotropium 18 MCG inhalation IH SCH (07:57)
[2016-07-10] MEDS: Budesonide/Formoterol 160/4.5 MDI IH SCH (07:58)
[2016-07-10] MEDS: Chlorhexidine Rinse 15 ML MOUTHWASH MM SCH (08:07)
[2016-07-10] MEDS: Aspirin Enteric Coated 81 MG Tablet PO SCH (08:07)
[2016-07-10] MEDS: *HR* OxyCODONE/APAP 5/325 TABLET PO PRN (08:07)
--- NOTE | 2016-07-10 09:17 | Discharge Summary ---
Date of Encounter: 07/10/16 Time of Encounter: 09:16 - Discharge Diagnosis (1) Coronary artery disease Priority: Primary Status: Acute Qualifiers: Coronary Disease-Associated Artery/Lesion type: [place] artery [place] vs. transplanted heart: [place] heart Associated angina: without angina Qualified Code(s): I25.10 - Atherosclerotic heart disease of [place] coronary artery without angina pectoris - Discharge Medications Prescriptions: OxyCODONE/APAP 5/325 [Percocet 5/325 MG] 1 each PO Q4HR PRN #50 tablet PRN Reason: Severe Pain Metoprolol [Lopressor] 25 mg PO BID #60 tablet Home Medications: Albuterol Sulfate [Proair Hfa] 2 puff IH Q4H PRN 07/01/16 [History] Aspirin [Lo-Dose Aspirin EC] 81 mg PO DAILY 07/01/16 [History] Budesonide/Formoterol 160/4.5 [Symbicort 160/4.5] 2 puff IH BIDR 07/01/16 [ History] Docusate [Colace] 100 mg PO DAILY 07/01/16 [History] Levothyroxine [Synthroid] 175 mcg PO 0630 07/01/16 [History] Omeprazole 20 mg PO DAILY 07/01/16 [History] Ranitidine HCl [Zantac 75] 75 mg PO DAILY 07/01/16 [History] Tamsulosin [Flomax] 0.4 mg PO DAILY 07/01/16 [History] Tiotropium [Spiriva] 18 mcg IH 0700 07/01/16 [History] Metoprolol [Lopressor] 25 mg PO BID #60 tablet 07/10/16 [Rx] OxyCODONE/APAP 5/325 [Percocet 5/325 MG] 1 each PO Q4HR PRN #50 tablet 07/10/16 [Rx] Allergies/Adverse Reactions: Allergies No Known Allergies Allergy (Verified 07/03/16 07:28) Date of admission: 07/03/16 10:38 Primary care physician: Adriana Gomez CNP Consults: 07/03/16 12:19 Consult to Cardiac Rehabilitation-Phase1 [CONS] Routine Comment: Reason for Consult: Post open heart Call Completed: Yes Consult to Bag Filler [CONS] Routine Reason for SW Consult: open heart Procedure(s) Performed: 1. CABG 3 (SALGADO to LAD, SVG to OM1, SVG to RCA) performed July 03, 2016. 2. Endoscopic vein harvesting, greater saphenous vein from right lower extremity performed July 03, 2016. Discharging clinician: Huyen Suresh Anticipated date of discharge: 07/10/16 - Patient Status Disposition: Transfer Inpatient Rehab Fac Condition: Good Functional capacity at discharge: independent ambulation Overall status at discharge: patient is progressing back to baseline - Discharge Instructions Follow Up With: Frantz Escalante MD [Partnered Physician] - 08/08/16 2:00 pm Adriana Gomez CNP [Primary Care Provider] - (This patient has decided to go to rehab no PCP appointment is needed) Leanne Cooney DO [Partnered Physician] - (called and spoke with Juan A at cardiology office to change the follow up appointment for this patient she said she would have to call us back) - Diet and Activity Activity: sternal precautions, no driving for four weeks, no lifting greater than 10 pounds for eight weeks Diet: low fat, low cholesterol - Hospital Course Hospital course: Mr. Camargo is a 65 year old man with COPD who began experiencing exertional substernal chest pain and worsening shortness of breath. He underwent an echocardiogram in April 2016 which revealed an LVEF 60-65%. Subsequent cardiac catheterization revealed severe three-vessel disease and the patient was recommended for CABG. The patient underwent CABG 3 on July 03, 2016. He was transferred to the ICU postoperatively remained hemodynamically stable. The patient was extubated and transferred to the telemetry hernandez. He was ambulating without complaints of substernal chest pain or shortness of breath. He was discharged home on POD #7. - Time Spent with Patient Total time spent providing and/or coordinating discharge services: Physical Examination Vital Signs, Last 4 Hours Temp Pulse Resp BP Pulse Ox 07/10/16 08:13 80 07/10/16 07:39 98.3 F 80 16 145/75 94 General: Conversant, No Apparent Distress HEENT: Atraumatic, Normocephaly, Trachea midline Neck: No JVD, Normal carotid pulses Cardiac: Reg Rate and Rhythm, Normal S1 and S2, No Murmur Lungs: Normal Breath Sounds, No Wheeze, Rales, Rhonchi Neuro: Alert and responsive, No focal deficits noted Vascular: Normal capillary refill Abdomen: Soft, Non-tender Skin: No rashes noted on visualized skin Musculoskeletal: No Chest Wall Tenderness Extremities: No Clubbing, No Cyanosis, No Edema Open Heart Registry Aspirin Cont/Prescribed at DC: Yes Beta Julian Cont/Prescribed at DC: Yes Statin Cont/Prescribed at DC: Yes SERENA/ARB Cont/Prescribed at DC: Not indicated (LVEF greater than 50%.) - VTE Documentation of Mechanical Device: Graduated compression elastic hosiery
--- NOTE | 2016-07-10 09:31 | Physician Discharge Referral ---
ExtendedCare Referral Info Transfer To: [facility] Provider in Charge: Boris Provider in Charge after Transfer: PCP Institutional Level of Care: Skilled - Diagnosis (1) Coronary artery disease Priority: Primary Status: Acute Prognosis: Good Aware of Diagnosis: Patient Aware of Prognosis: Patient - Transfer Medications Prescriptions: OxyCODONE/APAP 5/325 [Percocet 5/325 MG] 1 each PO Q4HR PRN #50 tablet PRN Reason: Severe Pain Atorvastatin [Lipitor] 40 mg PO HS #30 tablet Metoprolol [Lopressor] 25 mg PO BID #60 tablet Home Medications: Albuterol Sulfate [Proair Hfa] 2 puff IH Q4H PRN 07/01/16 [History] Aspirin [Lo-Dose Aspirin EC] 81 mg PO DAILY 07/01/16 [History] Budesonide/Formoterol 160/4.5 [Symbicort 160/4.5] 2 puff IH BIDR 07/01/16 [ History] Docusate [Colace] 100 mg PO DAILY 07/01/16 [History] Levothyroxine [Synthroid] 175 mcg PO 0630 07/01/16 [History] Omeprazole 20 mg PO DAILY 07/01/16 [History] Ranitidine HCl [Zantac 75] 75 mg PO DAILY 07/01/16 [History] Tamsulosin [Flomax] 0.4 mg PO DAILY 07/01/16 [History] Tiotropium [Spiriva] 18 mcg IH 0700 07/01/16 [History] Atorvastatin [Lipitor] 40 mg PO HS #30 tablet 07/10/16 [Rx] Metoprolol [Lopressor] 25 mg PO BID #60 tablet 07/10/16 [Rx] OxyCODONE/APAP 5/325 [Percocet 5/325 MG] 1 each PO Q4HR PRN #50 tablet 07/10/16 [Rx] Allergies/Adverse Reactions: Allergies No Known Allergies Allergy (Verified 07/03/16 07:28) - Respiratory Orders Smoking Cessation: Smoking cessation has been advised. For more information, call the [place] Tobacco Quit Line at 9-531-AEVF-NOW. CERTIFICATION: I certify that the transfer of the above named patient to an Extended Care Facility is necessary for the continuing treatment of the diagnosis listed. The above information is true and accurate reflection of patient's current condition. Confidential - Redisclosure prohibited without a patient's written consent.
[2016-07-10 11:26] VITALS: BP 126/76
== END 2016-07-10 12:12 | DRG 236 ==
LOC: SAMDAY 06:37 → ICNU 10:38 → 2NNU 07-05 18:21
PROVIDERS: ADMIT Thoracic Surgery (Cardiothoracic Vascular Surgery); ATTEND Thoracic Surgery (Cardiothoracic Vascular Surgery)